=== PATIENT | male | born 1990 | race African-American/Black ===

== ENCOUNTER 2020-08-17 21:00 | Emergency (ER) | payer OTHER ==
[2020-08-17] MEDS ORDERED: MEDROL 4MG DOSEP4 MG PO (23:12)
== END 2020-08-17 23:25 | disposition home or self-care (01) ==
LOC: FER 21:00
DX: M94.0 Chondrocostal junction syndrome [Tietze] (principal); Z88.0 Allergy status to penicillin
CPT/HCPCS: 71250